=== PATIENT | female | born 1990 | race Two or more races ===

== ENCOUNTER 2016-07-15 18:33 | Emergency (ER) | payer MEDICAID, OTHER ==
[~2016-07-15] VITALS: Ht 167.6 cm; Wt 135.2 kg
[2016-07-15 18:42] VITALS: Ht 167.6 cm; Wt 135.2 kg
--- NOTE | 2016-07-15 20:11 | ERA ---
ER Documentation Chief Complaint Date/Time DATE: 07/15/16 TIME: 20:09 Chief Complaint chronic AP and anxiety when she is around people. HPI 25-year-old woman with a history of anxiety and depression states she has had increasing symptoms she is with triplets. She is worried that she will hurt herself and is requesting psychiatric inpatient hospitalization. She denies fevers or chills, no chest pain, but no vaginal bleeding or discharge, no headache or blurry vision. She had a similar episode a couple years ago at which time she was placed on a 5150 psychiatric hold. ROS All systems reviewed and are negative except as per history of present illness. Medications Home Meds Unable to Obtain Active Prescriptions or Reported Meds Allergies Allergies: Coded Allergies: No Allergy Information Available (Verified Allergy, Unknown, 12/20/14) PMhx/Soc Anxiety and depression with previous psychotic features Medical and Surgical Hx: pt denies Surgical Hx History of Surgery: No Anesthesia Reaction: No Hx Neurological Disorder: No Hx Respiratory Disorders: No Hx Cardiac Disorders: No Hx Psychiatric Problems: Yes (DEPRESSION, STRESS DISORDER) Hx Miscellaneous Medical Probl: No Hx Alcohol Use: No Hx Substance Use: No Hx Tobacco Use: No Smoking Status: Former smoker FmHx Family History: No diabetes Physical Exam Vitals Vital Signs Date Time Temp Pulse Resp B/P Pulse Ox O2 Delivery O2 Flow Rate FiO2 07/15/16 18:42 96.7 109 18 143/83 96 Physical Exam GENERAL: Well-developed, well-nourished, appears anxious HEENT: Moist mucous membranes, pink conjunctiva, no cervical spine tenderness or step-off deformities, no goiter, no jaundice or icterus, extraocular movements intact without pain. No submandibular induration, and no pharyngeal erythema NEURO: Alert and oriented 3, cranial nerves II through XII intact bilaterally, pupils equal round reactive to light, no focal deficits or facial asymmetry, sensation intact distally Strength 5/5 in upper and lower extremities bilaterally CARDIAC: Regular rate and rhythm, no murmurs rubs or gallops LUNGS: Clear bilaterally no wheezing crackles or stridor ABDOMEN: Soft nontender, no guarding, no rigidity, no rebound, no psoas sign no obturator sign. Normoactive bowel sounds SKIN: Warm and dry to touch, no abrasions, contusions, or hematomas, no lacerations, no ecchymosis, no target lesions, and without ulcers EXTREMITIES: No clubbing cyanosis or edema, calves are bilaterally symmetrical, no Homans sign, no popliteal cord sign. Distal pulses equal and bilateral PSYCH: Anxious Result Diagram: 07/15/16209907/15/16 2100 Results 24 hrs Laboratory Tests Test 07/15/16 20:00 07/15/16 21:00 Urine Amphetamines Screen Negative Urine Bacteria FEW Urine Barbiturates Negative Urine Benzodiazepines Screen Negative Urine Bilirubin NEGATIVE Urine Cannabinoids Negative Urine Clarity CLEAR Urine Cocaine Screen Negative Urine Color LT. YELLOW Urine Glucose NEGATIVE% Urine Hemoglobin NEGATIVE Urine Ketones TRACE Urine Leukocyte Esterase TRACE Urine Microscopic RBC 0-2/HPF Urine Microscopic WBC 5-10/HPF Urine Nitrite NEGATIVE Urine Opiates Screen Negative Urine Specific [place] 1.025 Urine Squamous Epithelial Cells FEW Urine Total Protein NEGATIVE Urine Urobilinogen 0.2 E.U./dL Urine pH 6.0 Acetaminophen Level < 10.0ug/ml Alanine Aminotransferase (ALT/SGPT) 49IU/L Albumin 4.1g/dl Albumin/Globulin Ratio 1.32 Alkaline Phosphatase 70IU/L Anion Gap 15 Aspartate Amino Transf (AST/SGOT) 27IU/L Basophils # 0.010^3/ul Basophils % 0.3% Blood Urea Nitrogen 11mg/dl Calcium Level 9.1mg/dl Carbon Dioxide Level 29mmol/L Chloride Level 104mmol/L Creatinine 0.79mg/dl Direct Bilirubin 0.00mg/dl Eosinophils # 0.110^3/ul Eosinophils % 0.6% Ethyl Alcohol Level < 10.0mg/dl Globulin 3.10g/dl Glucose Level 89mg/dl Hematocrit 40.8% Hemoglobin 12.8g/dl Indirect Bilirubin 0.0mg/dl Lymphocytes # 2.610^3/ul Lymphocytes % 25.6% Mean Corpuscular Hemoglobin 26.0pg Mean Corpuscular Hemoglobin Concent 31.4g/dl Mean Corpuscular Volume 82.8fl Mean Platelet Volume 10.9fl Monocytes # 0.510^3/ul Monocytes % 4.5% Neutrophils # 7.010^3/ul Neutrophils % 68.6% Nucleated Red Blood Cells # 0.010^3/ul Nucleated Red Blood Cells % 0.0/100WBC Platelet Count 56508^3/UL Potassium Level 3.7mmol/L Red Blood Count 4.9310^6/ul Red Cell Distribution Width 14.3% Salicylates Level < 1.0mg/dl Sodium Level 144mmol/L Total Bilirubin 0.0mg/dl Total Protein 7.2g/dl White Blood Count 10.110^3/ul Current Medications Medications (Trade) Dose Ordered Sig/Laxmi Route PRN Reason Start Time Stop Time Status Last Admin Dose Admin Lorazepam (Ativan) 0.5 mg ONCE ONCE PO 07/15/16 20:30 07/15/16 20:31 DC 07/15/16 21:37 Cephalexin (Keflex) 500 mg ONCE ONCE PO 07/15/16 22:00 07/15/16 22:01 DC Procedures/MDM Security one-to-one watch was established and psychiatric finance lead has been contacted. For her symptoms I administered lorazepam 0.5 mg p.o. 1. CBC and electrolytes are normal, liver function tests were normal, test was negative, urine analysis was positive for infection. Alcohol level, Tylenol and aspirin levels were negative. Urine drug screen was negative for drugs of abuse. I administered cephalexin 500 mg p.o. for UTI. Disposition is pending psychiatric evaluation. Departure Diagnosis: Primary Impression: Psychosis Qualified Code: F29 - Psychosis, unspecified psychosis type Additional Impression: UTI (urinary tract infection) Qualified Code: N30.00 - Acute cystitis without hematuria Condition: GREGORY Barrios MD Jul 15, 2016 20:11
[2016-07-15 20:30] LABS: ADD UMIC YES; URINE BILIRUBIN (Dip) NEGATIVE (NEGATIVE); URINE BLOOD (Dip) NEGATIVE (NEGATIVE); URINE COLOR LT. YELLOW (YELLOW); URINE GLUCOSE (Dip) NEGATIVE (NEGATIVE); URINE KETONES (Dip) TRACE (NEGATIVE); URINE LEUKOCYTE ESTERASE (Dip) TRACE (NEGATIVE); URINE NITRITE (Dip) NEGATIVE (NEGATIVE); URINE TOTAL PROTEIN (Dip) NEGATIVE (NEGATIVE); URINE UROBILINOGEN (Dip) 0.2 E.U./dL (0.1-1.0)
[2016-07-15] MEDS ORDERED: LORAZEPAM 0.5 MG TAB PO ONE (20:30)
[2016-07-15 21:00] LABS: SQUAMOUS EPITHELIAL CELL,UR FEW; URINE RBCS 0-2 /HPF (0)
[2016-07-15 21:01] LABS: BACTERIA,URINE FEW
[2016-07-15 21:09] LABS: BARBITURATES Negative (NEGATIVE); BENZODIAZEPINES Negative (NEGATIVE); CANNABINOIDS Negative (NEGATIVE); COCAINE Negative (NEGATIVE); OPIATES Negative (NEGATIVE)
[2016-07-15 21:33] LABS: ADD SCAN DIFF NO
[2016-07-15 21:39] LABS: BASOPHILS % 0.3 % (0.0-2.0); EOSINOPHILS # 0.1 10^3/ul (0.0-0.5); EOSINOPHILS % 0.6 % (0.0-7.0); HEMATOCRIT 40.8 % (37.0-47.0); HEMOGLOBIN 12.8 g/dl (12.0-16.0); LYMPHOCYTES # 2.6 10^3/ul (0.8-2.9); LYMPHOCYTES % 25.6 % (15.0-51.0); MEAN CORPUSCULAR HGB CONC 31.4 g/dl (32.0-37.0); MEAN CORPUSCULAR VOLUME 82.8 fl (82.0-101.0); MEAN PLATELET VOLUME 10.9 fl (7.4-10.4); MONOCYTE # 0.5 10^3/ul (0.3-0.9); MONOCYTES % 4.5 % (0.0-11.0); NEUTROPHILS % 68.6 % (39.0-77.0); PLATELET COUNT 297 10^3/UL (140-415); RED BLOOD COUNT 4.93 10^6/ul (4.20-5.40); RED CELL DISTRIBUTION WIDTH 14.3 % (11.5-14.5); WHITE BLOOD COUNT 10.1 10^3/ul (4.8-10.8)
[2016-07-15] MEDS ORDERED: CEPHALEXIN 500 MG CAP PO ONE (22:00)
[2016-07-15 22:02] LABS: ALBUMIN 4.1 g/dl (3.3-4.9); CHLORIDE 104 mmol/L (97-110); POTASSIUM 3.7 mmol/L (3.5-5.1); SODIUM 144 mmol/L (135-144)
[2016-07-15 22:04] LABS: ANION GAP 15 (8-16); ASPARTATE AMINO TRANSFERASE 27 IU/L (15-46); CARBON DIOXIDE 29 mmol/L (21-31); CREATININE 0.79 mg/dl (0.44-1.00)
[2016-07-15 22:05] LABS: ALANINE AMINOTRANSFERASE 49 IU/L (13-69); ALBUMIN/GLOBULIN RATIO 1.32; ALKALINE PHOSPHATASE 70 IU/L (42-121); BLOOD UREA NITROGEN 11 mg/dl (7-20); CALCIUM 9.1 mg/dl (8.4-10.2); GLUCOSE 89 mg/dl (70-220); TOTAL PROTEIN 7.2 g/dl (6.1-8.1)
[2016-07-15 22:15] LABS: ACETAMINOPHEN < 10.0 ug/ml (10.0-30.0); ETHANOL < 10.0 mg/dl; SALICYLATE < 1.0 mg/dl (5.0-30.0)
[2016-07-16] MEDS ORDERED: ACETAMINOPHEN 325 MG TAB PO ONE (01:00)
--- NOTE | 2016-07-16 01:31 | PSY ---
Date/Time of Note Date/Time of Note DATE: 07/16/16 TIME: 01:20 Psychiatric Subjective Eval Subjective Evaluation Patient location: emergency Chief Complaint: chronic AP and anxiety when she is around people. Reason for consult: see RN notes: "AP due to having 3 fetuses inside of me" History of present illness patient is a 25 yo female living with her mother, unemployed , with PPH of depression with psychosis on abilify since last february and in weekly psychotherapy who came to the ER due to chronic abdominal pain, patient believes that her pain might be due to having 3 7 months fetus since 2010 since she had her son, because she says that her clinical ob told her that when her son was born there were 3 fetus left. she wants a sonogram to reassure her. she states that she has been feeling depressed for months since her son was removed from her when he was one year old due to mental illness, denies any current hallucination. she is very anxious with problem sleeping. no current si or hi. Past psychiatric history no past suicidal attempt Hospitalization: no Family History denies Medical history Problems Medical Problems: (1) Psychosis Status: Acute (2) Suicidal ideation Status: Acute (3) UTI (urinary tract infection) Status: Acute Allergies: Coded Allergies: No Allergy Information Available (Verified Allergy, Unknown, 12/20/14) Substance Abuse Substance use: No known substance abuse Social History Marital status: single Level of education: hs DPA/Conservatorship: No Occupation/Intermediate: unemployed Psychiatric Objective Eval Review of Systems: Review of Systems: Not Applicable Physical Examination: Physical Examination: Applicable Sleep: Insomnia Appetite: Increased, Decreased, Weight Gain Energy: Decreased Interest: Decreased Mental Status Examination: Appearance: Groomed Eye Contact: Good Psychomotor Activity: Normal Behavior: Friendly Speech: Clear AFFECT: Depressed Mood: Depressed Though Process: Linear Thought Content: Delusions Suicidal: No Homicidal: No On 72 hour hold: No Orientation: x3 Cognition: Alert Insight: Mild Judgement: Mild Attention Span: Intact Laboratory Results Laboratory Tests Test 07/15/16 20:00 07/15/16 21:00 Urine Amphetamines Screen Negative Urine Bacteria FEW Urine Barbiturates Negative Urine Benzodiazepines Screen Negative Urine Bilirubin NEGATIVE Urine Cannabinoids Negative Urine Clarity CLEAR Urine Cocaine Screen Negative Urine Color LT. YELLOW Urine Glucose NEGATIVE% Urine Hemoglobin NEGATIVE Urine Ketones TRACE Urine Leukocyte Esterase TRACE Urine Microscopic RBC 0-2/HPF Urine Microscopic WBC 5-10/HPF Urine Nitrite NEGATIVE Urine Opiates Screen Negative Urine Specific [place] 1.025 Urine Squamous Epithelial Cells FEW Urine Total Protein NEGATIVE Urine Urobilinogen 0.2 E.U./dL Urine pH 6.0 Acetaminophen Level < 10.0ug/ml Alanine Aminotransferase (ALT/SGPT) 49IU/L Albumin 4.1g/dl Albumin/Globulin Ratio 1.32 Alkaline Phosphatase 70IU/L Anion Gap 15 Aspartate Amino Transf (AST/SGOT) 27IU/L Basophils # 0.010^3/ul Basophils % 0.3% Blood Urea Nitrogen 11mg/dl Calcium Level 9.1mg/dl Carbon Dioxide Level 29mmol/L Chloride Level 104mmol/L Creatinine 0.79mg/dl Direct Bilirubin 0.00mg/dl Eosinophils # 0.110^3/ul Eosinophils % 0.6% Ethyl Alcohol Level < 10.0mg/dl Globulin 3.10g/dl Glucose Level 89mg/dl Hematocrit 40.8% Hemoglobin 12.8g/dl Indirect Bilirubin 0.0mg/dl Lymphocytes # 2.610^3/ul Lymphocytes % 25.6% Mean Corpuscular Hemoglobin 26.0pg Mean Corpuscular Hemoglobin Concent 31.4g/dl Mean Corpuscular Volume 82.8fl Mean Platelet Volume 10.9fl Monocytes # 0.510^3/ul Monocytes % 4.5% Neutrophils # 7.010^3/ul Neutrophils % 68.6% Nucleated Red Blood Cells # 0.010^3/ul Nucleated Red Blood Cells % 0.0/100WBC Platelet Count 35682^3/UL Potassium Level 3.7mmol/L Red Blood Count 4.9310^6/ul Red Cell Distribution Width 14.3% Salicylates Level < 1.0mg/dl Sodium Level 144mmol/L Total Bilirubin 0.0mg/dl Total Protein 7.2g/dl White Blood Count 10.110^3/ul Assessment and Plan Assessment/Diagnosis [place] I: delusional do nos r/o MMD with psychotic features r/o bipolar do r/o PTSD [place] II: deferred [place] III: as per record [place] IV: son removed [place] V: gaf 60 Recommendation/Plan Medication Management please give her remeron 15 mg po qhs for one month for depression and anxiety ativan 1 mg po qam for anxiety for 10 days Follow-up/Disposition In my opinion,for this patient, outpatient care is the least restrictive option. Based on available evidence, this condition CAN be safely treated at a lower level of care effective today. Patient is stable without clear and convincing evidence of imminent danger due to mental illness that requires acute inpatient psychiatric care as the least restrictive alternative. Please discharge patient with referral for follow up to a outpatient mental health clinic for psychotherapy and medication. BERKLEY HARP MD Jul 16, 2016 01:30
[2016-07-16] MEDS ORDERED: LORA-441 PO (03:17)
[2016-07-16] MEDS ORDERED: MIRT15TA PO (03:17)
[2016-07-16 03:31] VITALS: BP 119/62; PULSE 85; RESP 16; TEMP 98.8
== END 2016-07-16 04:09 | disposition home or self-care (01) ==
LOC: E/R 18:33
DX: F29 Unspecified psychosis not due to a substance or known physiological condition (principal); N30.00 Acute cystitis without hematuria; Z87.891 Personal history of nicotine dependence
CPT/HCPCS: 36415; 80053; 80306; 80307; 81001; 85025; Z7502; Z7610; 81003; 99284

== ENCOUNTER 2018-02-23 16:23 | Inpatient (IN) | END 2018-03-07 19:10 | disposition home or self-care (01) | DRG 871 ==

== ENCOUNTER 2018-05-02 15:57 | Inpatient (IN) | END 2018-05-03 17:52 | disposition home or self-care (01) | DRG 176 ==

== ENCOUNTER 2018-05-06 17:36 | Emergency (ER) | END 2018-05-06 21:56 | disposition home or self-care (01) ==

== ENCOUNTER 2018-07-21 05:26 | Emergency (ER) | payer OTHER ==
[~2018-07-21] VITALS: Ht 167.6 cm; Wt 139.5 kg
[~2018-07-21 05:26] MED LIST: ALBU18HF INHALATION; APIX5TAB PO; ATRO INHALATION; INSU100I33 SC; NOVO3I SC
[2018-07-21 05:28] VITALS: Ht 167.6 cm; Wt 139.5 kg
[2018-07-21] MEDS ORDERED: NITR-58 PO (07:13)
[2018-07-21] MEDS ORDERED: ACET325T33 PO (07:13)
--- NOTE | 2018-07-21 09:30 | ERD ---
ER Documentation Chief Complaint Chief Complaint AP X 2 HOURS HPI 27-year-old female presenting with abdominal pain times 2 hours. Patient states is generalized and she has had no vomiting no fevers. She also has some mild dysuria. Patient is convinced she is however she is taken multiple tests at home that are negative. Patient has not taken medications for symptoms. Denies other medical problems. NKDA. Surgical history denies. Social history denies ROS All systems reviewed and are negative except as per history of present illness. Medications Home Meds Active Scripts Nitrofurantoin Monohyd Macrocr* (Macrobid*) 100 Mg Capsr, 100 MG PO BID for 14 Days, CAP Prov:SONG HOLGUIN PA-C 07/21/18 Acetaminophen* (Tylenol*) 325 Mg Tablet, 2 TAB PO Q8 PRN for PAIN AND OR ELEVATED TEMP, #20 TAB Prov:SONG HOLGUIN PA-C 07/21/18 Apixaban* (Eliquis*) 5 Mg Tablet, 5 MG PO BID, #60 TAB 6 Refills Prov:STEPHANIE MATOS MD 05/03/18 Reported Medications Albuterol Sulfate* (Ventolin HFA*) 18 Gm Hfa.aer.ad, 2 PUFF INHALATION Q4H, #1 INHALER 05/02/18 Insulin Aspart* (Novolog Insulin Pen*) 100 Unit/Ml Soln, 25 UNIT SC AC D, EA 05/02/18 Ipratropium Quin[place]* (Atrovent HFA*) 12.9 Gm Aer.w.adap, 2.5 ML INHALATION Q4H for SHORTNESS OF BREATH, #1 INHALER 05/02/18 Insulin Glargine,Hum.rec.anlog (Basaglar Kwikpen U-100) 100 Unit/1 Ml Insuln.pen, 35 UNIT SC BID, EA 05/02/18 Allergies Allergies: Coded Allergies: No Known Allergy (Unverified , 05/06/18) PMhx/Soc Medical and Surgical Hx: pt denies Surgical Hx History of Surgery: No Anesthesia Reaction: No Hx Neurological Disorder: No Hx Respiratory Disorders: Yes (ASTHMA, sleep apnea, pneumonia, PE, DM II) Hx Cardiac Disorders: No Hx Psychiatric Problems: No Hx Miscellaneous Medical Probl: No Hx Alcohol Use: Yes (social) Hx Substance Use: Yes (METH,MARIJUANA,) Hx Tobacco Use: Yes Smoking Status: Current every day smoker FmHx Family History: No diabetes, No coronary disease, No other Physical Exam Vitals Vital Signs Date Temp Pulse Resp B/P (MAP) Pulse Ox O2 O2 Flow FiO2 Time Delivery Rate 07/21/18 97.6 84 18 148/92 99 05:28 (110) Physical Exam GENERAL: The patient is well-appearing, well-nourished, in no acute distress HEENT: Atraumatic. Conjunctivae are pink. Pupils equal, round, and reactive to light. There is no scleral icterus. Tympanic membranes clear bilaterally. Oropharynx clear. NECK: C-spine is soft and supple. There is no meningismus. There is no cervical lymphadenopathy. CHEST: Clear to auscultation bilaterally. There are no rales, wheezes or rhonchi. HEART: Regular rate and rhythm. No murmurs, clicks, rubs or gallops. No S3 or S4. ABDOMEN:Soft, nontender and nondistended. Good bowel sounds. No rebound or guarding. No gross peritonitis. No gross organomegaly or masses. BACK: No CVAT Results 24 hrs Laboratory Tests Test 07/21/18 06:41 07/21/18 06:47 07/21/18 06:49 Serum HCG, Qualitative NEGATIVE Bedside Urine pH (LAB) 6.0 Bedside Urine Protein (LAB) Trace Bedside Urine Glucose (UA) Negative Bedside Urine Ketones (LAB) Trace Bedside Urine Blood Negative Bedside Urine Nitrite (LAB) Negative Bedside Urine Leukocyte Esterase (L Trace POC Beta HCG, Qualitative NEGATIVE Procedures/MDM ER course: Urine negative. Blood hCG negative. Urine questionable for possible infection. MDM: 27-year-old female presenting with abdominal pain. Patient's exam is non- concerning. Patient's urine is negative. Patient has findings consistent with possible urinary tract infection so I will treat with antibiotics. I have low suspicion for pyelonephritis. Patient is discharged stricter precautions and told to follow-up with primary care within 1-2 days for close evaluation. All questions answered at discharge Departure Diagnosis: Primary Impression: Abdominal pain Additional Impression: UTI (urinary tract infection) Condition: Stable Patient Instructions: Abdominal Pain, Understanding Urinary Tract Infections (UTIs) Referrals: COMMUNITY CLINICS YOU HAVE RECEIVED A MEDICAL SCREENING EXAM AND THE RESULTS INDICATE THAT YOU DO NOT HAVE A CONDITION THAT REQUIRES URGENT TREATMENT IN THE EMERGENCY DEPARTMENT. FURTHER EVALUATION AND TREATMENT OF YOUR CONDITION CAN WAIT UNTIL YOU ARE SEEN IN YOUR DOCTORS OFFICE WITHIN THE NEXT 1-2 DAYS. IT IS YOUR RESPONSIBILITY TO MAKE AN APPOINTMENT FOR FOLOW-UP CARE. IF YOU HAVE A PRIMARY DOCTOR --you should call your primary doctor and schedule an appointment IF YOU DO NOT HAVE A PRIMARY DOCTOR YOU CAN CALL OUR PHYSICIAN REFERRAL HOTLINE AT IF YOU CAN NOT AFFORD TO SEE A PHYSICIAN YOU CAN CHOSE FROM THE FOLLOWING [facility] [address] [facility] [address] [facility] [facility] [address] [facility] [address] [facility] [address] [facility]. [facility]. [address] Additional Instructions: FOLLOW UP WITH YOUR PRIMARY CARE PHYSICIAN TOMORROW.Return to this facility if you are not improving as expected. SONG HOLGUIN PA-C Jul 21, 2018 09:30
== END 2018-07-21 07:51 | disposition home or self-care (01) ==
LOC: FTE 05:26
DX: N39.0 Urinary tract infection, site not specified (principal); E11.9 Type 2 diabetes mellitus without complications; J45.909 Unspecified asthma, uncomplicated; F17.210 Nicotine dependence, cigarettes, uncomplicated; Z79.4 Long term (current) use of insulin
CPT/HCPCS: 81003; 81025; 84703; Z7502; 99283